=== PATIENT | male | born 1950 | race Caucasian/White ===

== ENCOUNTER 2020-08-18 08:19 | Day surgery (SDC) | payer MEDICARE, BC ==
[2020-08-18] MEDS ORDERED: Lidocaine 2% 5 ML SDV INJECT ONE (08:20)
[2020-08-18] MEDS ORDERED: Propofol 200 MG/20 ML SDV IV ONE (08:20)
[2020-08-18] MEDS ORDERED: Lactated Ringers 1,000 ML IV SCH (08:30)
[2020-08-18] MEDS ORDERED: Sodium Chloride 0.9% 10 ML Syringe FLUSH PRN (08:30)
--- NOTE | 2020-08-18 09:33 | PCM.HP.2 ---
H&P History of Present Illness - General Date of Service: 08/18/20 Admit Problem/Dx: Admission Diagnosis/Problem Admission Diagnosis/Problem Esophagogastroduodenoscopy - History of Present Illness Initial Comments - Free Text/Narative: 69 yo wm who developed some melena last week. Stools were black this has subsequently has stopped. He has a hx of GERD and has been on both Mobic as well as full strength aspirin. No significant pain. - Related Data Allergies/Adverse Reactions: Allergies Allergy/AdvReac Type Severity Reaction Status Date / Time No Known Allergies Allergy Verified 08/18/20 08:45 Home Medications: Home Meds Acetaminophen [Tylenol] 650 mg PO Q8H PRN 06/13/13 [History] Aspirin 325 mg PO BID 06/13/13 [History] Tamsulosin HCl [Flomax] 0.8 mg PO BEDTIME 06/13/13 [History] Ciclopirox [Loprox 0.77% Crm] 1 applic TOP TID 08/14/20 [History] Clotrimazole [Lotrimin AF 1% Crm] 1 applic TOP QID 08/14/20 [History] Esomeprazole [NexIUM] 40 mg PO ACBREAKFAST 08/14/20 [History] Hydrocortisone [Proctozone-HC 2.5% Crm] 1 applic RECTAL QID 08/14/20 [History] Meloxicam [Mobic] 15 mg PO DAILY 08/14/20 [History] Mupirocin Oint [Bactroban Oint] 1 applic TOP TID 08/14/20 [History] hydrOXYzine pamoate [Vistaril] 25 mg PO TID PRN 08/14/20 [History] ondansetron HCL [Zofran] 4 mg PO ASDIRECTED PRN 08/18/20 [History] Past Medical History HEENT History: Reports: Other (See Below) Other HEENT History: COLD SORES Cardiovascular History: Reports: Arrhythmia Respiratory History: Reports: None Gastrointestinal History: Reports: GERD, Other (See Below) Other Gastrointestinal History: DIARRHEA Genitourinary History: Reports: BPH Musculoskeletal History: Reports: Osteoarthritis, Other (See Below) Other Musculoskeletal History: SACROILIITIS, DDD, LUMBOSACRAL PAIN Neurological History: Reports: None Psychiatric History: Reports: None Endocrine/Metabolic History: Reports: None Hematologic History: Reports: None Immunologic History: Reports: None Oncologic (Cancer) History: Reports: None Dermatologic History: Reports: None - Past Surgical History Cardiovascular Surgical History: Reports: Cardiac Ablation Respiratory Surgical History: Reports: None GI Surgical History: Reports: Other (See Below) Other GI Surgeries/Procedures: HEMORRHOID SURGERY Male Surgical History: Reports: None Endocrine Surgical History: Reports: None Neurological Surgical History: Reports: None Musculoskeletal Surgical History: Reports: Carpal Tunnel, Shoulder Surgery, Other (See Below) Other Musculoskeletal Surgeries/Procedures:: ROTATOR CUFF ANCHOR Oncologic Surgical History: Reports: None Social & Family History - Tobacco Use Tobacco Use Status *Q: Never Tobacco User - Caffeine Use Caffeine Use: Reports: Soda - Recreational Drug Use Recreational Drug Use: No H&P Review of Systems - Review of Systems: Review Of Systems: See Below HEENT: Reports: No Symptoms Pulmonary: Reports: No Symptoms Cardiovascular: Reports: No Symptoms Gastrointestinal: Reports: Black Stool Genitourinary: Reports: Frequency Skin: Reports: No Symptoms Exam - Exam Exam: See Below - Vital Signs Vital Signs: Last Vital Signs Temp 98.1 F 08/18/20 08:30 Pulse 56 L 08/18/20 08:30 Resp 16 08/18/20 08:30 BP 160/61 H 08/18/20 08:30 Pulse Ox 100 08/18/20 08:30 Weight: 87.997 kg - Exam General: Alert, Oriented, Cooperative Lungs: Clear to Auscultation, Normal Respiratory Effort Cardiovascular: Regular Rate, Regular Rhythm GI/Abdominal Exam: Normal Bowel Sounds, Soft, Non-Tender - Patient Data Lab Results Last 24 hrs: Laboratory Results - last 24 hr 08/18/20 Range/Units 08:38 SARS-CoV-2 RNA (ASHA) Negative (NEGATIVE) Sepsis Event Note - Focused Exam Vital Signs: Vital Signs Temp Pulse Resp BP Pulse Ox 08/18/20 08:30 98.1 F 56 L 16 160/61 H 100 *Q Meaningful Use (ADM) - VTE *Q VTE Pharmacological Contraindications *Q: Risk of Bleeding - Problem List (1) Melena SNOMED Code(s): 2875843 ICD Code: K92.1 - MELENA Status: Acute Current Visit: Yes Problem List Initiated/Reviewed/Updated: Yes Orders Last 24hrs: Active Orders 24 hr Category Date Time Status Patient Status [ADT] Routine ADT 08/18/20 08:30 Active Patient to Empty Bladder [RC] ASDIRECTED Care 08/18/20 08:30 Active Verify Patient Consent Obtain [RC] ASDIRECTED Care 08/18/20 08:30 Active Nothing Per Oral Diet [DIET] Diet 08/17/20 Dinner Ordered Lactated Ringers [Ringers, Lactated] 1,000 ml Med 08/18/20 08:30 Active IV ASDIRECTED Sodium Chloride 0.9% [Saline Flush] Med 08/18/20 08:30 Active 10 ml FLUSH ASDIRECTED PRN Peripheral IV Insertion Adult [OM.PC] Routine Oth 08/18/20 08:30 Ordered Medication Orders Lactated Ringer's (Ringers, Lactated) 1,000 mls @ 125 mls/hr IV ASDIRECTED KAYLEY Last Admin: 08/18/20 09:00 Dose: 125 mls/hr Documented by: LEE ANN Sodium Chloride (Saline Flush) 10 ml FLUSH ASDIRECTED PRN PRN Reason: Keep Vein Open Assessment/Plan Comment:: Plan: EGD. Procedure and risks explained to the pt to include bleeding, infection, perforation. He expressed understanding and asks us to proceed.
--- NOTE | 2020-08-18 09:59 | PCM.OPNOTE ---
- General Post-Op/Procedure Note Date of Surgery/Procedure: 08/18/20 Operative Procedure(s): egd with cold forceps biopsy Findings: gastroduodenitis irregular z line Pre Op Diagnosis: Hx of melena Post-Op Diagnosis: gastroduodenitis. irregular z line Anesthesia Technique: MAC Primary Surgeon: Gal Uribe Anesthesia Provider: Vinita Tse Pathology: duodenum stomach distal esophagus Complications: None Condition: Good Free Text/Narrative:: [id number] see dictation
--- NOTE | 2020-08-18 10:51 | OR ---
DATE OF OPERATION: 08/18/2020 SURGEON: Gal Uribe MD PROCEDURE PERFORMED: Esophagogastroduodenoscopy with cold forceps biopsy. PREOPERATIVE DIAGNOSIS: History of melena. POSTOPERATIVE DIAGNOSIS: Gastric duodenitis as well as irregular Z-line. INDICATIONS FOR PROCEDURE: This is a 69-year-old white male who had an episode of some melena last week. This was short lived. It has subsequently resolved. He is on a proton pump inhibitor. He does take Nexium. He also takes Mobic as well as a full-strength aspirin. He was offered and accepted an EGD to determine etiology of his bleeding. DESCRIPTION OF OPERATION: After an excellent IV sedation was administered, the bite block was inserted. The flexible endoscope was passed without difficulty down the patient's esophagus into the stomach. Stomach was insufflated. Scope was passed to the pylorus and second portion of the duodenum and slowly withdrawn. The following findings were noted: First portion of the duodenum, there was some friable mucosa. No ulcer was seen in the entire duodenum, but multiple biopsies were taken of the first portion. Stomach, diffuse gastritis, especially in the area of the antrum and biopsies were taken of the antrum as well as along the greater curvature. The GE junction measured at 40 cm. Esophagus, the Z-line was irregular, so several biopsies were taken of the prominent tongues of tissue. The remainder of the esophageal exam was unremarkable. The patient tolerated the procedure well, was taken to recovery. Results will be sent to the patient via letter. /[id number] /MODL
== END 2020-08-18 10:27 | disposition home or self-care (01) ==
LOC: FB.SDS 08:19
PROVIDERS: ATTEND Surgery
DX: K29.80 Duodenitis without bleeding (principal); K22.8 Other specified diseases of esophagus; I48.91 Unspecified atrial fibrillation; K21.9 Gastro-esophageal reflux disease without esophagitis; Z01.812 Encounter for preprocedural laboratory examination; Z20.822 Contact with and (suspected) exposure to COVID-19; Z79.899 Other long term (current) drug therapy; Z79.82 Long term (current) use of aspirin
CPT/HCPCS: 00731-QZ; 88305; 88313; 88342; J2704; J7120; U0002

== ENCOUNTER 2023-06-08 06:21 | Day surgery (SDC) | payer MEDICARE, BC ==
[2023-06-08] MEDS ORDERED: Propofol 200 MG/20 ML SDV IV ONE (06:22)
[2023-06-08] MEDS ORDERED: Lidocaine 2% 5 ML SDV ONE (06:22)
[2023-06-08] MEDS ORDERED: Lidocaine 2% 5 ML SDV IV ONE (06:22)
[2023-06-08] MEDS ORDERED: Sodium Chloride 0.9% 10 ML Syringe FLUSH PRN (06:45)
[2023-06-08] MEDS: Lactated Ringers 1,000 ML IV SCH (08:00)
== END 2023-06-08 10:10 | disposition home or self-care (01) ==
LOC: FB.SDS 06:21
PROVIDERS: ATTEND Surgery
DX: K21.00 Gastro-esophageal reflux disease with esophagitis, without bleeding (principal); K29.80 Duodenitis without bleeding; K44.9 Diaphragmatic hernia without obstruction or gangrene; K42.9 Umbilical hernia without obstruction or gangrene; K40.90 Unilateral inguinal hernia, without obstruction or gangrene, not specified as recurrent; I10 Essential (primary) hypertension; Z87.891 Personal history of nicotine dependence; Z79.899 Other long term (current) drug therapy
CPT/HCPCS: 00731; 88305; 99100; J2704; J7120